=== PATIENT | male | born 1945 | race Caucasian/White ===

== ENCOUNTER 2018-03-08 12:37 | Inpatient (IN) | payer OTHER ==
[2018-03-08] MEDS ORDERED: ASPIRIN 81 MG CHEWABLE TABLETS PO ONE (13:14)
[2018-03-08] MEDS ORDERED: SODIUM CHLORIDE 1,000 ML IV STA (13:14)
[2018-03-08] MEDS ORDERED: dilTIAZem HCL 50 MG/10 ML - 10 ML VIAL IVPUSH ONE ×2 (13:32→14:33)
--- NOTE | 2018-03-08 13:36 | PDOC ---
History of Present Illness - General Chief Complaint: Tachycardia Stated Complaint: PCP SENT Time Seen by Provider: 03/08/18 13:12 History Source: Patient, Spouse Exam Limitations: No Limitations - History of Present Illness Initial Comments: 03/08/18 13:35 Pt. is a 72 y.o. M w/ PMHx. 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 Bardales's office for incidental finding of new onset A.Flutter on EKG and low blood pressure during annual physical. Pt. denies all symptoms currently including dizziness, palpitations, lightheadedness, chest pain, numbness/tingling, shortness of breath, changes in bowel habits, changes in urinary habits or Admission labs, cardiac profile, INR/PT ordered. 03/08/18 15:01 Pt. given 5 mg Diltiazem after 500ml IVF bolus. Pt. HR droppped to 116 but returned to 160s. Pt. started on Cardizem drip. Case discussed with Dr. Johnson and with AUTO BODY REPAIR ESTIMATOR Tong Hollis. Dr. Johnson advised to start Pt. on anticoagulation and use of low dose BB in addition to Cardizem for refractory A.flutter. Timing/Duration: unsure Severity: moderate Associated Symptoms: reports: denies symptoms Aspirin Received prior to arrival: Yes: no aspirin today Beta Trent Contraindications(Core Measure): Yes: Not Prescribed Past History - Travel Traveled outside of the country in the last 30 days: No Close contact w/someone who was outside of country & ill: No - Past Medical History Allergies/Adverse Reactions: Allergies Allergy/AdvReac Type Severity Reaction Status Date / Time atracurium [Atracurium] Allergy Verified 03/08/18 12:46 mivacurium [Mivacurium] AdvReac Severe Verified 03/08/18 12:46 pancuronium [Pancuronium] AdvReac Severe Verified 03/08/18 12:46 rocuronium AdvReac Severe Verified 03/08/18 12:46 succinylcholine AdvReac Severe Verified 03/08/18 12:46 [Succinylcholine] vecuronium [Vecuronium] AdvReac Severe Verified 03/08/18 12:46 Home Medications: Ambulatory Orders Brimonidine Tartrate [Alphagan P 0.1% -] 1 drop OU HS 09/16/13 Folic Acid/Multivit-Min/Lutein [Multi-Vitamin Gummies] 1 each PO DAILY 09/16/13 Levothyroxine [Synthroid -] 50 mcg PO DAILY 09/16/13 Tamsulosin HCl [Flomax -] 0.4 mg PO DAILY 09/16/13 Travoprost 0.004% Ophth Soln [Travatan (Nf)] 1 drop OU AM 09/16/13 Tamsulosin HCl [Flomax -] 0.4 mg PO BID #60 cap.er.24h 09/19/13 levoFLOXacin 250 MG IVPB [Levaquin 250 mg Premixed Ivpb -] 250 mg PO DAILY #3 mg 09/19/13 Anemia: No Asthma: No Cancer: Yes (testicular) Cardiac Disorders: Yes (CABG 2009) CVA: No COPD: No CHF: No Dementia: No Diabetes: Yes (peripheral neuropathy) GI Disorders: Yes (gerd) Disorders: (TESTICULAR CANCER) HTN: Yes Hypercholesterolemia: No Liver Disease: No Seizures: No Thyroid Disease: Yes (hypothyroid) - Surgical History Abdominal Surgery: Yes (APPENDECTOMY) Appendectomy: Yes Cardiac Surgery: Yes (quadrouple BYPASS-2009) Cholecystectomy: No Lung Surgery: No Neurologic Surgery: No Orthopedic Surgery: No - Immunization History Td Vaccination: Yes TDAP Vaccination: Yes Immunization Up to Date: Yes - Suicide/Smoking/Psychosocial Hx Smoking Status: No Smoking History: Never smoked Years of Tobacco Use: 0 Have you smoked in the past 12 months: No Number of Cigarettes Smoked Daily: 0 Cigars Per Day: 0 Hx Alcohol Use: No Drug/Substance Use Hx: No Substance Use Type: None Hx Substance Use Treatment: No Review of Systems - Review of Systems Able to Perform ROS?: Yes Is the patient limited Moldovan proficient: No Constitutional: No: Symptoms Reported HEENTM: No: Symptoms Reported Respiratory: No: Symptoms reported Cardiac (ROS): No: Symptoms Reported ABD/GI: No: Symptoms Reported : No: Symptoms Reported Musculoskeletal: No: Symptoms Reported Integumentary: No: Symptoms Reported Neurological: No: Symptoms reported Endocrine: No: Symptoms Reported Hematologic/Lymphatic: No: Symptoms Reported *Physical Exam - Vital Signs Last Vital Signs Temp Pulse Resp BP Pulse Ox 98.0 F 125 H 16 115/75 99 03/08/18 12:48 03/08/18 12:48 03/08/18 12:48 03/08/18 12:48 03/08/18 12:48 - Physical Exam General Appearance: Yes: Nourished, Appropriately Dressed, Thin. No: Apparent Distress HEENT: positive: Normal ENT Inspection, Normal Voice, Symmetrical, Pharynx Normal, Hearing Grossly Normal. negative: Pharyngeal Erythema, Tonsillar Exudate, Tonsillar Erythema Neck: positive: Trachea midline, Supple. negative: Tender, Carotid bruit Respiratory/Chest: positive: Lungs Clear, Normal Breath Sounds. negative: Chest Tender, Respiratory Distress, Accessory Muscle Use, Rapid RR, Crackles, Rales, Wheezing Cardiovascular: positive: S1, S2, Edema (trace LE edema ), Tachycardia. negative: JVD, Murmur Vascular Pulses: Dorsalis-Pedis (R): 2+, Doralis-Pedis (L): 2+ Gastrointestinal/Abdominal: positive: Normal Bowel Sounds, Soft. negative: Distended, Guarding, Rebound, Tenderness Rectal Exam: positive: deferred Musculoskeletal: positive: Normal Inspection. negative: CVA Tenderness, Vertebral Tenderness Extremity: positive: Normal Capillary Refill, Normal Inspection, Normal Range of Motion, Pelvis Stable, Swelling. negative: Tender, Pedal Edema, Calf Tenderness Integumentary: positive: Normal Color, Dry, Warm. negative: Cold, Clammy, Swelling, Ecchymosis Neurologic: positive: Fully Oriented, Alert, Normal Mood/Affect, Normal Response , Respond to painful stimul, Responsive Moderate Sedation - Procedure Monitoring Vital Signs: Procedure Monitoring Vital Signs Temperature 98.0 F 03/08/18 12:48 Pulse Rate 125 H 03/08/18 12:48 Respiratory Rate 16 03/08/18 12:48 Blood Pressure 115/75 03/08/18 12:48 O2 Sat by Pulse Oximetry (%) 99 03/08/18 12:48 ED Treatment Course - LABORATORY CBC & Chemistry Diagram: 03/08/18 14:05 03/08/18 14:05 - RADIOLOGY Radiology Studies Ordered: Category Date Time Status CHEST PA & LAT [RAD] Stat Radiology 03/08/18 13:14 Ordered *DC/Admit/Observation/Transfer Diagnosis at time of Disposition: Atrial flutter with rapid ventricular response - Discharge Dispostion Decision to Admit order: Yes - Referrals - Patient Instructions - Post Discharge Activity
[2018-03-08] MEDS ORDERED: DILTIAZEM INJECTION 125 MG in DEXTROSE 5%-WATER - 100 ML IVPB SCH (13:45)
[2018-03-08] MEDS ORDERED: dilTIAZem HCL 50 MG/10 ML - 10 ML VIAL ONE (13:46)
[2018-03-08] MEDS ORDERED: ASPIRIN 81 MG CHEWABLE TABLETS ONE (13:47)
[2018-03-08 14:27] LABS: BASO % 0.7 % (0-2.0); EOS % 0.5 % (0-4.5); HEMATOCRIT 37.3 % (35.4-49); HEMOGLOBIN 12.7 GM/dL (11.7-16.9); LYMPH % 17.6 % (8-40); MCH 30.9 pg (25.7-33.7); MCHC 34.2 g/dl (32.0-35.9); MEAN CELL VOLUME 90.5 fl (80-96); MEAN PLT VOLUME 8.1 fl (7.5-11.1); MONO % 5.8 % (3.8-10.2); NEUT % 75.4 % (42.8-82.8); PLATELET COUNT 184 K/MM3 (134-434); RBC 4.12 M/mm3 (4.00-5.60); RDW 15.3 % (11.9-15.9); WHITE BLOOD COUNT 6.8 K/mm3 (4.0-10.0)
--- NOTE | 2018-03-08 14:44 | CON.CARD ---
Consult Consult Specialty:: Cardiology Referred by:: Javan Mendoza MD Reason for Consultation:: Rapid atrial flutter - History of Present Illness Chief Complaint: Rapid atrial flutter History of Present Illness: 72-year-old male with known history of coronary artery disease status post coronary artery bypass grafting August 12, 2009 (utilizing the following conduits: Left internal mammary artery into the LAD-D 1 and left anterior descending coronary artery, saphenous vein graft to the LCX-OM 1 branch, saphenous vein graft to the posterior descending coronary artery) status post type II myocardial infarction/demand ischemic injury in the context of sepsis syndrome with negative pharmacologic (Dipyridamole) myocardial perfusion imaging study for myocardial ischemia May 20, 2015 angina pectoris, diastolic left ventricular dysfunction with class 0 [place] Heart Association classification left ventricular failure, hypercholesterolemia currently on no statin therapy (patient refusal to therapy administration), deep vein thrombosis with history of pulmonary thromboembolism, myasthenia gravis, hypothyroidism, 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 Patient referred to the ED from Dr. Mendoza's office for new onset A.Flutter on EKG and low blood pressure during annual physical. Pt. denies all symptoms currently including dizziness, palpitations, lightheadedness, chest pain, numbness/tingling, shortness of breath worse than baseline, orthopnea, PND, LE edema or decrease in exercise capacity. Given IV Cardizem and started on cardizem gtt for rate-control. 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: Other (Myasthenia Gravis ) Cardio/Vascular: Yes: CAD (s/p CABG (2009)), HTN, Hyperlipdemia Pulmonary: Yes: COPD Renal/: Yes: BPH, Renal Calculi, Other (Testicular Cancer (1975)) Infectious Disease: Yes: C-Diff, Other (Spine (L3-4) Osteomyelitis (2012)) Rheumatology: Yes: Other (Reynaud's Phenomenon) Endocrine: Yes: Hypothyroidism - Past Surgical History Past Surgical History: Yes: Appendectomy, CABG - Alcohol/Substance Use Hx Alcohol Use: No History of Substance Use: reports: None - Smoking History Smoking history: Never smoked Have you smoked in the past 12 months: No Aproximately how many cigarettes per day: 0 Home Medications - Allergies Allergies/Adverse Reactions: Allergies Allergy/AdvReac Type Severity Reaction Status Date / Time atracurium [Atracurium] Allergy Verified 03/08/18 12:46 mivacurium [Mivacurium] AdvReac Severe Verified 03/08/18 12:46 pancuronium [Pancuronium] AdvReac Severe Verified 03/08/18 12:46 rocuronium AdvReac Severe Verified 03/08/18 12:46 succinylcholine AdvReac Severe Verified 03/08/18 12:46 [Succinylcholine] vecuronium [Vecuronium] AdvReac Severe Verified 03/08/18 12:46 - Home Medications Home Medications: Ambulatory Orders Brimonidine Tartrate [Alphagan P 0.1% -] 1 drop OU HS 09/16/13 Folic Acid/Multivit-Min/Lutein [Multi-Vitamin Gummies] 1 each PO DAILY 09/16/13 Levothyroxine [Synthroid -] 50 mcg PO DAILY 09/16/13 Travoprost 0.004% Ophth Soln [Travatan (Nf)] 1 drop OU AM 09/16/13 Tamsulosin HCl [Flomax -] 0.4 mg PO BID #60 cap.er.24h 09/19/13 Vital Signs: Vital Signs Temperature 98.0 F 03/08/18 12:48 Pulse Rate 163 H 03/08/18 14:25 Respiratory Rate 26 H 03/08/18 14:25 Blood Pressure 116/76 03/08/18 14:25 O2 Sat by Pulse Oximetry (%) 100 03/08/18 14:25 Constitutional: Yes: No Distress, Calm, Thin Neck: Yes: Supple Respiratory: Yes: Regular, CTA Bilaterally Gastrointestinal: Yes: Normal Bowel Sounds, Soft Cardiovascular: Yes: Tachycardia JVD: No Carotid Bruit: No Heart Sounds: Yes: S1, S2 Edema: No - Other Data Labs, Other Data: CBC, BMP 03/08/18 14:05 Troponin, BNP 03/08/18 14:05 B-Natriuretic Peptide Cancelled Troponin, BNP 03/08/18 14:05 B-Natriuretic Peptide Cancelled Aflutter @ 123 Imaging - Results Chest X-ray: Image Reviewed (NAD) Problem List - Problems (1) S/P CABG (coronary artery bypass graft) Code(s): Z95.1 - PRESENCE OF AORTOCORONARY BYPASS GRAFT (2) Atrial flutter with rapid ventricular response Code(s): I48.92 - UNSPECIFIED ATRIAL FLUTTER (3) Hypothyroid Code(s): E03.9 - HYPOTHYROIDISM, UNSPECIFIED Qualifiers: Hypothyroidism type: unspecified Qualified Code(s): E03.9 - Hypothyroidism , unspecified (4) CKD (chronic kidney disease) Code(s): N18.9 - CHRONIC KIDNEY DISEASE, UNSPECIFIED Qualifiers: Chronic kidney disease stage: stage 2 (mild) Qualified Code(s): N18.2 - Chronic kidney disease, stage 2 (mild) (5) Diastolic dysfunction Code(s): I51.9 - HEART DISEASE, UNSPECIFIED Assessment/Plan Echocardiography performed May 28, 2015 revealed overall preserved left ventricular systolic function, mitral annular calcification, aortic valve leaflet sclerosis, aortic root sclerosis, mild right atrial dilatation, mild mitral and tricuspid valve regurgitation aneurysmal intra-atrial septum with no evidence of intra-cardiac shunting. Pharmacologic (Dipyridamole) myocardial perfusion imaging study performed May 20, 2015 revealed small size infero-basal wall defect compatible with diaphragmatic attenuation with normal left ventricular contraction pattern on LV gated analysis with calculated left ventricular ejection fraction of 73%. Carotid Doppler study performed June 19, 2014 revealed mild to moderate degree of atherosclerotic disease bilaterally with no evidence of hemodynamically significant stenosis. ASSESSMENT: 1. Paroxysmal atrial flutter with RVR [id number] 2. Coronary artery disease status post coronary artery bypass grafting status post type II myocardial infarction/demand ischemic injury in context of sepsis syndrome with negative pharmacologic (Dipyridamole) myocardial perfusion imaging study angina pectoris. 3. Diastolic left ventricular dysfunction with class 0 [place] Heart Association classification left ventricular failure. 4. Hypercholesterolemia currently on no statin therapy, related to patient refusal to therapy administration. 5. History of deep vein thrombosis with pulmonary thromboembolism. 6. History of myasthenia gravis. 7. History of hypothyroidism. 8. 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 9. History of chronic kidney disease. 10. Degenerative joint disease. 11. Chronic insomnia. PLAN: 1. Maintain on cardizem gtt and start Lopressor 25 bid for rate-control with uptitration as hemodynamics tolerate, agree with start Eliquis 5 bid given elevated risk score, d/c ECASA. 2. F/u echocardiogram to assess ventricular and valve fxn, atrial sizes, renal sonogram 3. Consider DCCV if atrial flutter persists, either with MARIA ISABEL-guidance or after at least 3 weeks of anticoagulation 4. Thank you for consultative opportunity
[2018-03-08 14:48] LABS: ALBUMIN 3.9 g/dl (3.4-5.0); ALK PHOS 43 U/L (45-117); ANION GAP 7 MMOL/L (8-16); BILIRUBIN,TOTAL 0.7 mg/dL (0.2-1); BLOOD UREA NITROGEN 31 mg/dL (7-18); CALCIUM 8.8 mg/dL (8.5-10.1); CHLORIDE 108 mmol/L (98-107); CO2 27 mmol/L (21-32); CREATININE 1.4 mg/dL (0.55-1.3); GLUCOSE,RANDOM 101 mg/dL (74-106); MAGNESIUM 2.4 mg/dL (1.8-2.4); N-TERMINAL BNP 1139.2 pg/ml (5-125); POTASSIUM 4.2 mmol/L (3.5-5.1); SGOT/AST 18 U/L (15-37); SGPT/ALT 19 U/L (13-61); SODIUM 142 mmol/L (136-145); TOT PROT 6.3 g/dl (6.4-8.2)
[2018-03-08] MEDS ORDERED: DIGOXIN 0.5 MG/2 ML AMPUL IVPUSH ONE (14:58)
[2018-03-08 15:01] LABS: INR 1.05 (0.83-1.09); PROTHROMBIN TIME (PATIENT) 12.4 SEC (9.7-13.0)
--- NOTE | 2018-03-08 15:04 | PDOC ---
Attending Attestation - HPI HPI: 03/08/18 15:05 The patient is a 72 year old male, with a significant PMH of CAD s/p CABG, hypothyroidism, myasthenia (eyes), s/p appendectomy, who presents to the emergency department sent in by PCP for evaluation of atrial flutter. The patient states he feels well and does not feel his heart racing. Denies any sick contacts or recent travel. Denies any cough or hemoptysis. The patient denies chest pain, shortness of breath, headache and dizziness. Denies fever, chills, nausea, vomit, diarrhea and constipation. Denies dysuria, frequency, urgency and hematuria. Allergies: atracurium, mivacurium, pancuronium, rocuronium (More). Documentation prepared by Fadi Zavala, acting as medical administrative technician for Jordan Byrne MD. - Physicial Exam PE: 03/08/18 15:06 Vitals: Triage Vital signs reviewed General Appearance: no acute distress, well nourished well developed, Neck: Supple;No Nuchal rigidity Chest Wall: Nontender Cardiac: (+) Irregular rhythm. (+) Tachycardia. no murmurs, no rubs, no gallops, Lungs: Clear to auscultation bilateral, good air movement bilaterally, Abdomen: Soft, nondistended, normal bowel sounds, nontender to palpation Rectal: Exam deferred Extremities: Full range of motion to all extremities, no cyanosis, clubbing, or edema Skin: Warm and dry, no rashes or lesions, no petechiae Psych: normal mood, normal affect <Fadi Zavala - Last Filed: 03/08/18 15:05> - Resident Resident Name: Arcadio Diallo - ED Attending Attestation I have performed the following: I have examined & evaluated the patient, The case was reviewed & discussed with the resident, I agree w/resident's findings & plan, Exceptions are as noted - Critical Care Time Total Critical Care Time: 45 Critical Care Statement: The care of this patient involved high complexity decision making to prevent further life threatening deterioration of the patient 's condition and/or to evaluate & treat vital organ system(s) failure or risk of failure. - Medical Decision Making 03/08/18 16:09 The patient is a 72 year old male, with a significant PMH of CAD s/p CABG, hypothyroidism, myasthenia (eyes), s/p appendectomy, who presents to the emergency department sent in by PCP for evaluation of atrial flutter. The patient states he feels well and does not feel his heart racing. Denies any sick contacts or recent travel. Denies any cough or hemoptysis. 72 years old with no known history of a flutter but comments that often over the past year when she checks patient's vital signs at home she has observed him with an elevated heart rate however when he follows up his doctor' s office there is no known history of a flutter Here in the emergency department patient said in for a flutter with RVR at a rate of 123 IV fluids were ordered 5 mg of diltiazem ordered which transiently dipped the patient's blood pressure into the 90s systolic but quickly resolved IV heparin ordered for anticoagulation Patient was placed on IV diltiazem drip status post 15 minutes on diltiazem drip patient now rate controlled but still in a flutter Cardiology has been consult did patient will be admitted to medicine under telemetry for further evaluation. <Jordan Byrne - Last Filed: 03/08/18 16:10> Heart Score/ECG Review - ECG Impressions Comment:: 03/08/18 15:02 EKG performed at 1307 demonstrates atrial flutter with 21 conduction block right bundle-branch block. Interpreted by me. <Jordan Byrne - Last Filed: 03/08/18 16:10>
--- NOTE | 2018-03-08 15:15 | HP ---
Admitting History and Physical - Primary Care Physician PCP: Javan Mendoza - Admission Chief Complaint: rapid heart rate History of Present Illness: Pt. is a 72 y.o. M w/ PMHx. 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 Mendoza's office for incidental finding of new onset A.Flutter on EKG and low blood pressure during annual physical. 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: Other (Myasthenia Gravis ) Cardiovascular: Yes: CAD (s/p CABG (2009)), HTN, Hyperlipdemia Pulmonary: Yes: COPD Renal/: Yes: BPH, Renal Calculi, Other (Testicular Cancer (1975)) Heme/Onc: Yes: Cancer (as per system) Infectious Disease: Yes: C-Diff, Other (Spine (L3-4) Osteomyelitis (2012)) Rheumatology: Yes: Other (Reynaud's Phenomenon) Endocrine: Yes: Hypothyroidism - Past Surgical History Past Surgical History: Yes: Appendectomy, CABG - Smoking History Smoking history: Never smoked Have you smoked in the past 12 months: No Aproximately how many cigarettes per day: 0 - Alcohol/Substance Use Hx Alcohol Use: No History of Substance Use: reports: None Home Medications - Allergies Allergies/Adverse Reactions: Allergies Allergy/AdvReac Type Severity Reaction Status Date / Time atracurium [Atracurium] Allergy Verified 03/08/18 12:46 mivacurium [Mivacurium] AdvReac Severe Verified 03/08/18 12:46 pancuronium [Pancuronium] AdvReac Severe Verified 03/08/18 12:46 rocuronium AdvReac Severe Verified 03/08/18 12:46 succinylcholine AdvReac Severe Verified 03/08/18 12:46 [Succinylcholine] vecuronium [Vecuronium] AdvReac Severe Verified 03/08/18 12:46 - Home Medications Home Medications: Ambulatory Orders Brimonidine Tartrate [Alphagan P 0.1% -] 1 drop OU HS 09/16/13 Folic Acid/Multivit-Min/Lutein [Multi-Vitamin Gummies] 1 each PO DAILY 09/16/13 Levothyroxine [Synthroid -] 50 mcg PO DAILY 09/16/13 Travoprost 0.004% Ophth Soln [Travatan (Nf)] 1 drop OU AM 09/16/13 Tamsulosin HCl [Flomax -] 0.4 mg PO BID #60 cap.er.24h 09/19/13 Review of Systems - Review of Systems HENT: reports: No Symptoms Neck: reports: No Symptoms Cardiovascular: reports: No Symptoms Physical Examination Vital Signs: Vital Signs Temperature 98.0 F 03/08/18 12:48 Pulse Rate 163 H 03/08/18 14:25 Respiratory Rate 26 H 03/08/18 14:25 Blood Pressure 116/76 03/08/18 14:25 O2 Sat by Pulse Oximetry (%) 100 03/08/18 14:25 Constitutional: Yes: Calm Cardiovascular: Yes: Pulse Irregular, S1, S2 Respiratory: Yes: CTA Bilaterally Gastrointestinal: Yes: Normal Bowel Sounds, Soft Edema: No Neurological: Yes: Alert, Oriented Labs: CBC, BMP 03/08/18 14:05 03/08/18 14:05 Problem List - Problems (1) Atrial flutter with rapid ventricular response Assessment/Plan: [facility] ej Code(s): I48.92 - UNSPECIFIED ATRIAL FLUTTER (2) Hypothyroid Assessment/Plan: tsh synthroid Code(s): E03.9 - HYPOTHYROIDISM, UNSPECIFIED (3) Glaucoma Assessment/Plan: eye drops Code(s): H40.9 - UNSPECIFIED GLAUCOMA (4) BPH (benign prostatic hyperplasia) Assessment/Plan: flomax Code(s): N40.0 - BENIGN PROSTATIC HYPERPLASIA WITHOUT LOWER URINRY TRACT SYMP
[2018-03-08] MEDS ORDERED: ACETAMINOPHEN 325 MG TABLET (FP) PO PRN (15:26)
[2018-03-08] MEDS: APIXABAN 5 MG TABLET PO SCH ×2 (17:31→21:37)
[2018-03-08] MEDS: TAMSULOSIN HCL 0.4 MG CAP PO SCH (17:32)
[2018-03-08] MEDS ORDERED: METOPROLOL TARTRATE 25 MG TABLET (FP) ONE ×3 (20:27→23:46)
[2018-03-08] MEDS: METOPROLOL TARTRATE 25 MG TABLET (FP) PO SCH ×2 (20:29→21:37)
[2018-03-08] MEDS ORDERED: APIXABAN 5 MG TABLET PO ONE (21:34)
[2018-03-08] MEDS: BRIMONIDINE TARTRATE 0.1% OPHTHALMIC 5 ML BOTTLE OU SCH (21:37)
[2018-03-08] MEDS ORDERED: METOPROLOL TARTRATE 25 MG TABLET (FP) PO ONE (23:43)
[2018-03-09 03:31] VITALS: BMI 23.1
[2018-03-09] MEDS: LEVOTHYROXINE NA 50 MCG TABLET (FP) PO SCH (06:14)
[2018-03-09] MEDS ORDERED: LATANOPROST 0.005% OPHTH SOLN 2.5ML BOTTLE OU SCH ×2 (07:00→22:00)
--- NOTE | 2018-03-09 08:01 | PN ---
Progress Note, Physician - Current Medication List Current Medications: Active Medications Acetaminophen (Tylenol -) 650 mg PO Q4H PRN PRN Reason: PAIN OR FEVER Apixaban (Eliquis -) 5 mg PO BID [facility] Last Admin: 03/08/18 21:37 Dose: Not Given Brimonidine Tartrate (Alphagan P 0.1% -) 1 drop OU HS [facility] Last Admin: 03/08/18 21:37 Dose: Not Given Diltiazem HCl 125 mg/ Dextrose 125 mls @ 5 mls/hr IVPB TITR PANCHO; Protocol Last Admin: 03/08/18 14:25 Dose: 5 mg/hr, 5 mls/hr Latanoprost (Xalatan 0.005% Eye Drops -) 1 drop OU HS [facility] Levothyroxine Sodium (Synthroid -) 50 mcg PO DAILY@0700 [facility] Last Admin: 03/09/18 06:14 Dose: 50 mcg Metoprolol Tartrate (Lopressor -) 25 mg PO BID [facility] Last Admin: 03/08/18 21:37 Dose: Not Given Tamsulosin HCl (Flomax -) 0.4 mg PO DAILY@0830 [facility] Last Admin: 03/08/18 17:32 Dose: 0.4 mg - Objective Vital Signs: Vital Signs Temperature 98 F 03/09/18 06:00 Pulse Rate 78 03/09/18 06:00 Respiratory Rate 20 03/09/18 06:00 Blood Pressure 118/66 03/09/18 06:00 O2 Sat by Pulse Oximetry (%) 100 03/09/18 02:02 Cardiovascular: Yes: Pulse Irregular, S1, S2 Respiratory: Yes: Regular, CTA Bilaterally Gastrointestinal: Yes: Normal Bowel Sounds, Soft Edema: No Labs: CBC, BMP 03/08/18 14:05 03/08/18 14:05 INR, PTT INR 1.05 (0.83-1.09) 03/08/18 14:05 Problem List - Problems (1) Atrial flutter with rapid ventricular response Assessment/Plan: telemetry [facility] echo cardiology eval--pt want to change crdiologist--used to see alana but stopped following as outpatient and prefers a different group eliquis Code(s): I48.92 - UNSPECIFIED ATRIAL FLUTTER (2) CKD (chronic kidney disease) Assessment/Plan: -Foloow trends -Renal consult -Probably due to bph -Flomax Code(s): N18.9 - CHRONIC KIDNEY DISEASE, UNSPECIFIED Qualifiers: Chronic kidney disease stage: stage 2 (mild) Qualified Code(s): N18.2 - Chronic kidney disease, stage 2 (mild) (3) Hypothyroid Assessment/Plan: tsh synthroid Code(s): E03.9 - HYPOTHYROIDISM, UNSPECIFIED Qualifiers: Hypothyroidism type: unspecified Qualified Code(s): E03.9 - Hypothyroidism , unspecified (4) S/P CABG (coronary artery bypass graft) Code(s): Z95.1 - PRESENCE OF AORTOCORONARY BYPASS GRAFT
[2018-03-09 10:00] LABS: ALBUMIN 4.4 g/dl (3.4-5.0); ALK PHOS 49 U/L (45-117); ANION GAP 9 MMOL/L (8-16); BILIRUBIN,TOTAL 1.2 mg/dL (0.2-1); BLOOD UREA NITROGEN 24 mg/dL (7-18); CHLORIDE 108 mmol/L (98-107); CO2 24 mmol/L (21-32); CREATININE 1.3 mg/dL (0.55-1.3); GLUCOSE,RANDOM 120 mg/dL (74-106); POTASSIUM 4.1 mmol/L (3.5-5.1); SGOT/AST 22 U/L (15-37); SGPT/ALT 20 U/L (13-61); SODIUM 141 mmol/L (136-145); TOT PROT 6.8 g/dl (6.4-8.2)
--- NOTE | 2018-03-09 10:57 | PN ---
Progress Note, Physician History of Present Illness: Rate-controlled aflutter, asymptomatic on Cardizem gtt. Confused and pulled off monitor, called to pick him up. - Current Medication List Current Medications: Active Medications Acetaminophen (Tylenol -) 650 mg PO Q4H PRN PRN Reason: PAIN OR FEVER Apixaban (Eliquis -) 5 mg PO BID [facility] Last Admin: 03/08/18 21:37 Dose: Not Given Brimonidine Tartrate (Alphagan P 0.1% -) 1 drop OU HS [facility] Last Admin: 03/08/18 21:37 Dose: Not Given Diltiazem HCl 125 mg/ Dextrose 125 mls @ 5 mls/hr IVPB TITR [facility]; Protocol Last Admin: 03/08/18 14:25 Dose: 5 mg/hr, 5 mls/hr Latanoprost (Xalatan 0.005% Eye Drops -) 1 drop OU HS [facility] Levothyroxine Sodium (Synthroid -) 50 mcg PO DAILY@0700 [facility] Last Admin: 03/09/18 06:14 Dose: 50 mcg Metoprolol Tartrate (Lopressor -) 25 mg PO BID [facility] Last Admin: 03/08/18 21:37 Dose: Not Given Tamsulosin HCl (Flomax -) 0.4 mg PO DAILY@0830 [facility] Last Admin: 03/08/18 17:32 Dose: 0.4 mg - Objective Vital Signs: Vital Signs Temperature 98 F 03/09/18 06:00 Pulse Rate 78 03/09/18 06:00 Respiratory Rate 20 03/09/18 06:00 Blood Pressure 118/66 03/09/18 06:00 O2 Sat by Pulse Oximetry (%) 100 03/09/18 02:02 Constitutional: Yes: No Distress, Calm Neck: Yes: Supple Cardiovascular: Yes: Regular Rate and Rhythm Respiratory: Yes: Regular, CTA Bilaterally Gastrointestinal: Yes: Normal Bowel Sounds, Soft Edema: No Labs: CBC, BMP 03/08/18 14:05 03/09/18 09:04 INR, PTT INR 1.05 (0.83-1.09) 03/08/18 14:05 - ....Imaging Ultrasound: Report Reviewed (No hydronephrosis) EKG: Report Reviewed (Tele: Rate-controlled aflutter) Problem List - Problems (1) S/P CABG (coronary artery bypass graft) Code(s): Z95.1 - PRESENCE OF AORTOCORONARY BYPASS GRAFT (2) Atrial flutter with rapid ventricular response Code(s): I48.92 - UNSPECIFIED ATRIAL FLUTTER (3) Hypothyroid Code(s): E03.9 - HYPOTHYROIDISM, UNSPECIFIED Qualifiers: Hypothyroidism type: unspecified Qualified Code(s): E03.9 - Hypothyroidism , unspecified (4) CKD (chronic kidney disease) Code(s): N18.9 - CHRONIC KIDNEY DISEASE, UNSPECIFIED Qualifiers: Chronic kidney disease stage: stage 2 (mild) Qualified Code(s): N18.2 - Chronic kidney disease, stage 2 (mild) (5) Diastolic dysfunction Code(s): I51.9 - HEART DISEASE, UNSPECIFIED Assessment/Plan Echocardiography performed May 28, 2015 revealed overall preserved left ventricular systolic function, mitral annular calcification, aortic valve leaflet sclerosis, aortic root sclerosis, mild right atrial dilatation, mild mitral and tricuspid valve regurgitation aneurysmal intra-atrial septum with no evidence of intra-cardiac shunting. Pharmacologic (Dipyridamole) myocardial perfusion imaging study performed May 20, 2015 revealed small size infero-basal wall defect compatible with diaphragmatic attenuation with normal left ventricular contraction pattern on LV gated analysis with calculated left ventricular ejection fraction of 73%. Carotid Doppler study performed June 19, 2014 revealed mild to moderate degree of atherosclerotic disease bilaterally with no evidence of hemodynamically significant stenosis. ASSESSMENT: 1. Paroxysmal atrial flutter with RVR [id number] 2. Coronary artery disease status post coronary artery bypass grafting status post type II myocardial infarction/demand ischemic injury in context of sepsis syndrome with negative pharmacologic (Dipyridamole) myocardial perfusion imaging study angina pectoris. 3. Diastolic left ventricular dysfunction with class 0 [place] [employer] classification left ventricular failure. 4. Hypercholesterolemia currently on no statin therapy, related to patient refusal to therapy administration. 5. History of deep vein thrombosis with pulmonary thromboembolism. 6. History of myasthenia gravis. 7. History of hypothyroidism. 8. 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 9. History of chronic kidney disease. 10. Degenerative joint disease. 11. Chronic insomnia. 12. Dementia PLAN: 1. Wean off cardizem gtt and increase Lopressor 50 bid for rate-control with uptitration as hemodynamics tolerate, agree with Eliquis 5 bid given elevated risk score 2. F/u echocardiogram to assess ventricular and valve fxn, atrial sizes 3. Consider DCCV if atrial flutter persists, either with MARIA ISABEL-guidance or after at least 3 weeks of anticoagulation 4. Patient defers health care decisions to Marzena who prefers to continue f/ u with Dr. Calvert as outpatient
[2018-03-09] MEDS: METOPROLOL TARTRATE 25 MG TABLET (FP) PO SCH (11:20)
[2018-03-09] MEDS: APIXABAN 5 MG TABLET PO SCH ×2 (11:20→21:58)
[2018-03-09] MEDS: TAMSULOSIN HCL 0.4 MG CAP PO SCH (11:20)
--- NOTE | 2018-03-09 12:04 | EKG ---
Test Reason : Blood Pressure : / mmHG Vent. Rate : 123 BPM Atrial Rate : 246 BPM P-R Int : 000 ms QRS Dur : 158 ms QT Int : 426 ms P-R-T Axes : 000 096 267 degrees QTc Int : 609 ms ATRIAL FLUTTER WITH 2:1 A-V CONDUCTION RIGHT BUNDLE BRANCH BLOCK INFERIOR INFARCT , AGE UNDETERMINED T WAVE ABNORMALITY, CONSIDER LATERAL ISCHEMIA ABNORMAL ECG WHEN COMPARED WITH ECG OF 16-SEP-2013 12:11, ATRIAL FLUTTER HAS REPLACED SINUS RHYTHM VENT. RATE HAS INCREASED BY 43 BPM RIGHT BUNDLE BRANCH BLOCK IS NOW PRESENT INFERIOR INFARCT IS NOW PRESENT Confirmed by BUDDY MAZA, WENCESLAO ([id number]) on 03/09/2018 12:03:43 PM Referred By: Confirmed By:WENCESLAO GOODWIN MD
[2018-03-09] MEDS ORDERED: METOPROLOL TARTRATE 25 MG TABLET (FP) PO ONE (13:14)
[2018-03-09] MEDS ORDERED: DILTIAZEM INJECTION 125 MG in DEXTROSE 5%-WATER - 100 ML IVPB SCH (15:08)
--- NOTE | 2018-03-09 15:30 | ECHO ---
Name: J LUIS COREA Exam:Adult Echocardiogram Study Date: 03/09/2018 01:30 PM Age: 72 yrs Reason For Study: Arrhythmia Height: 72 in Weight: 168 lb BSA: 2.0 m2 MMode/2D Measurements & Calculations IVSd: 0.87 cm Ao root diam: 2.7 cm LVIDd: 4.6 cm LA dimension: 3.4 cm LVIDs: 3.0 cm LVPWd: 0.86 cm EDV(Teich): 98.5 ml ESV(Teich): 34.1 ml Doppler Measurements & Calculations MV E max cristóbal: 68.0 cm/sec MR max cristóbal: 374.2 cm/sec MV A max cristóbal: 45.5 cm/sec MR max P.0 mmHg MV E/A: 1.5 MV dec time: 0.13 sec TR max cristóbal: 162.3 cm/sec Med Peak E' Cristóbal: 11.5 cm/sec TR max P.6 mmHg Med E/e': 5.9 Lat Peak E' Cristóbal: 15.7 cm/sec Lat E/e': 4.3 Left Ventricle Ejection Fraction = 50%. Left ventricular systolic function is low normal. Septal motion is consisten t with conduction abnormality. Right Ventricle The right ventricle is grossly normal size. The right ventricular systolic function is grossly normal . Atria The left atrium is mildly dilated. Mitral Valve The mitral valve is normal in structure and function. There is no mitral valve stenosis. There is mil d mitral regurgitation. Tricuspid Valve The tricuspid valve is normal in structure and function. There is mild tricuspid regurgitation. Right ventricular systolic pressure is normal. Aortic Valve There is mild aortic valve thickening. No hemodynamically significant valvular aortic stenosis. No ao rtic regurgitation is present. Pulmonic Valve The pulmonic valve is not well seen, but is grossly normal. There is no pulmonic valvular stenosis. T here is no pulmonic valvular regurgitation. Great Vessels The aortic root is normal size. Pericardium/Pleura There is no pericardial effusion. Interpretation Summary Ejection Fraction = 50%. Left ventricular systolic function is low normal. The left atrium is mildly dilated. There is mild mitral regurgitation. There is mild tricuspid regurgitation. Right ventricular systolic pressure is normal. There is no pericardial effusion. MD Topete *Macie 03/09/2018 03:29 PM
--- NOTE | 2018-03-09 18:26 | CONSULT ---
Consult - text type - Consultation Consultation Note: Renal Consult for REMA vs CKD This is a 72 year old gentleman with hx of CAD, BPH, DVT/PE, Myasthaenia gravis , testicular cancer who presented with rapid HR and found to have aflutter with Cr of 1.4. Pt denies any history of CKD. No hx of stones or urinary tract infections. No NSAID use. No recent contrast exposure. Making urine at this time w/o difficulty. Denies any N/V/D, abd pain, fever, chills. No SOB or CP. On dilitizem gtt for aflutter. PMhx: as above Allergies: NKDA Family Hx: NC Social Hx: No T/A/D ROS: as per HPI, all other pertinent ros negative Home Medications Medication Instructions Recorded Brimonidine Tartrate [Alphagan P 1 drop OU HS 09/16/13 0.1% -] Folic Acid/Multivit-Min/Lutein 1 each PO DAILY 09/16/13 [Multi-Vitamin Gummies] Levothyroxine [Synthroid -] 50 mcg PO DAILY 09/16/13 Travoprost 0.004% Ophth Soln 1 drop OU AM 09/16/13 [Travatan (Nf)] Tamsulosin HCl [Flomax -] 0.4 mg PO BID #60 cap.er.24h 09/19/13 Vital Signs Temperature 98.5 F 03/09/18 15:30 Pulse Rate 61 03/09/18 15:30 Respiratory Rate 18 03/09/18 15:30 Blood Pressure 103/54 L 03/09/18 15:30 O2 Sat by Pulse Oximetry (%) 100 03/09/18 02:02 Intake & Output 03/06/18 03/07/18 03/08/18 03/09/18 23:59 23:59 23:59 23:59 Intake Total 960 Balance 960 Weight 76.204 kg 77.201 kg NAD awake and alert neck supple no JVD irregular No M/R CTA no LE edema CBC, BMP 03/08/18 14:05 03/09/18 09:04 Current Medications Acetaminophen (Tylenol -) 650 mg PO Q4H PRN PRN Reason: PAIN OR FEVER Apixaban (Eliquis -) 5 mg PO BID [facility] Last Admin: 03/09/18 11:20 Dose: 5 mg Brimonidine Tartrate (Alphagan P 0.1% -) 1 drop OU HS [facility] Last Admin: 03/08/18 21:37 Dose: Not Given Diltiazem HCl 125 mg/ Dextrose 125 mls @ 2.5 mls/hr IVPB TITR [facility]; Protocol Last Admin: 03/09/18 15:17 Dose: Not Given Latanoprost (Xalatan 0.005% Eye Drops -) 1 drop OU HS [facility] Levothyroxine Sodium (Synthroid -) 50 mcg PO DAILY@0700 [facility] Last Admin: 03/09/18 06:14 Dose: 50 mcg Metoprolol Tartrate (Lopressor -) 50 mg PO BID [facility] Tamsulosin HCl (Flomax -) 0.4 mg PO DAILY@0830 [facility] Last Admin: 03/09/18 11:20 Dose: 0.4 mg A/P 72 year old gentleman with hx of CAD, BPH, DVT/PE, Myasthaenia gravis, testicular cancer who presented with rapid HR and found to have aflutter with Cr of 1.4. #REMA vs CKD likely due to renal hypoprofusion in setting of Aflutter vs. obstruction in urine flow #New Aflutter #BPH on Flomax #Hypothyroidism Renal function with mild improvement today Check UA, UPCR Check Kidney and bladder US continue to trend renal function with improved rate control no acute indication for [employer]OR [employer] PROFIT avoid nephrotoxins and IV contrast continue flomax Cardiology follow up Juan Alberto Blanco DO
[2018-03-09] MEDS ORDERED: PT OWN MED DRAWER 7, Y5N ONE (21:50)
[2018-03-09] MEDS: METOPROLOL TARTRATE 50 MG TABLET (FP) PO SCH (21:58)
[2018-03-09] MEDS: BRIMONIDINE TARTRATE 0.1% OPHTHALMIC 5 ML BOTTLE OU SCH (23:00)
[2018-03-10] MEDS ORDERED: PT OWN MED DRAWER 7, Y5N ONE (00:57)
[2018-03-10] MEDS: LEVOTHYROXINE NA 50 MCG TABLET (FP) PO SCH (06:36)
[2018-03-10 07:53] LABS: BASO % 0.6 % (0-2.0); EOS % 3.3 % (0-4.5); HEMOGLOBIN 11.9 GM/dL (11.7-16.9); LYMPH % 38.9 % (8-40); MCH 29.3 pg (25.7-33.7); MCHC 32.2 g/dl (32.0-35.9); MEAN CELL VOLUME 91.1 fl (80-96); MEAN PLT VOLUME 7.7 fl (7.5-11.1); MONO % 8.9 % (3.8-10.2); NEUT % 48.3 % (42.8-82.8); PLATELET COUNT 172 K/MM3 (134-434); RBC 4.06 M/mm3 (4.00-5.60); RDW 14.9 % (11.9-15.9); WHITE BLOOD COUNT 4.7 K/mm3 (4.0-10.0)
[2018-03-10 08:35] LABS: ALBUMIN 3.2 g/dl (3.4-5.0); ALK PHOS 34 U/L (45-117); ANION GAP 8 MMOL/L (8-16); BILIRUBIN,TOTAL 0.9 mg/dL (0.2-1); BLOOD UREA NITROGEN 20 mg/dL (7-18); CALCIUM 8.5 mg/dL (8.5-10.1); CHLORIDE 109 mmol/L (98-107); CO2 24 mmol/L (21-32); CREATININE 1.1 mg/dL (0.55-1.3); GLUCOSE,RANDOM 95 mg/dL (74-106); MAGNESIUM 2.3 mg/dL (1.8-2.4); PHOSPHOROUS 3.3 mg/dL (2.5-4.9); POTASSIUM 3.8 mmol/L (3.5-5.1); SGOT/AST 21 U/L (15-37); SGPT/ALT 19 U/L (13-61); SODIUM 141 mmol/L (136-145); TOT PROT 5.2 g/dl (6.4-8.2)
--- NOTE | 2018-03-10 09:21 | PN ---
Progress Note, Physician History of Present Illness: Rate-controlled aflutter weaned off Cardizem gtt. Pleasantly confused, asymptomatic. - Current Medication List Current Medications: Active Medications Acetaminophen (Tylenol -) 650 mg PO Q4H PRN PRN Reason: PAIN OR FEVER Apixaban (Eliquis -) 5 mg PO BID [facility] Last Admin: 03/09/18 21:58 Dose: 5 mg Brimonidine Tartrate (Alphagan P 0.1% -) 1 drop OU HS [facility] Last Admin: 03/09/18 23:00 Dose: 1 drop Diltiazem HCl 125 mg/ Dextrose 125 mls @ 2.5 mls/hr IVPB TITR [facility]; Protocol Last Admin: 03/09/18 15:17 Dose: Not Given Latanoprost (Xalatan 0.005% Eye Drops -) 1 drop OU HS [facility] Last Admin: 03/09/18 21:59 Dose: 1 drop Levothyroxine Sodium (Synthroid -) 50 mcg PO DAILY@0700 [facility] Last Admin: 03/10/18 06:36 Dose: 50 mcg Metoprolol Tartrate (Lopressor -) 50 mg PO BID [facility] Last Admin: 03/09/18 21:58 Dose: 50 mg Tamsulosin HCl (Flomax -) 0.4 mg PO DAILY@0830 [facility] Last Admin: 03/09/18 11:20 Dose: 0.4 mg - Objective Vital Signs: Vital Signs Temperature 97.8 F 03/10/18 06:00 Pulse Rate 68 03/10/18 06:00 Respiratory Rate 18 03/10/18 06:00 Blood Pressure 107/63 03/10/18 06:00 O2 Sat by Pulse Oximetry (%) 100 03/09/18 21:00 Constitutional: Yes: No Distress, Calm, Thin HENT: Yes: Atraumatic Neck: Yes: Supple Cardiovascular: Yes: Regular Rate and Rhythm Respiratory: Yes: Regular, CTA Bilaterally Gastrointestinal: Yes: Normal Bowel Sounds, Soft Edema: No Labs: CBC, BMP 03/10/18 06:30 03/10/18 06:30 INR, PTT INR 1.05 (0.83-1.09) 03/08/18 14:05 - ....Imaging EKG: Report Reviewed (Tele: Rate-controlled aflutter @ 80) Problem List - Problems (1) S/P CABG (coronary artery bypass graft) Code(s): Z95.1 - PRESENCE OF AORTOCORONARY BYPASS GRAFT (2) Atrial flutter with rapid ventricular response Code(s): I48.92 - UNSPECIFIED ATRIAL FLUTTER (3) Hypothyroid Code(s): E03.9 - HYPOTHYROIDISM, UNSPECIFIED Qualifiers: Hypothyroidism type: unspecified Qualified Code(s): E03.9 - Hypothyroidism , unspecified (4) CKD (chronic kidney disease) Code(s): N18.9 - CHRONIC KIDNEY DISEASE, UNSPECIFIED Qualifiers: Chronic kidney disease stage: stage 2 (mild) Qualified Code(s): N18.2 - Chronic kidney disease, stage 2 (mild) (5) Diastolic dysfunction Code(s): I51.9 - HEART DISEASE, UNSPECIFIED Assessment/Plan Echocardiography Mar 09, 2018 Low normal LV fxn LVEF 50%, normal RV size and fxn , mild LAE, mild MR, TR, normal RVSP Echocardiography performed May 28, 2015 revealed overall preserved left ventricular systolic function, mitral annular calcification, aortic valve leaflet sclerosis, aortic root sclerosis, mild right atrial dilatation, mild mitral and tricuspid valve regurgitation aneurysmal intra-atrial septum with no evidence of intra-cardiac shunting. Pharmacologic (Dipyridamole) myocardial perfusion imaging study performed May 20, 2015 revealed small size infero-basal wall defect compatible with diaphragmatic attenuation with normal left ventricular contraction pattern on LV gated analysis with calculated left ventricular ejection fraction of 73%. Carotid Doppler study performed June 19, 2014 revealed mild to moderate degree of atherosclerotic disease bilaterally with no evidence of hemodynamically significant stenosis. ASSESSMENT: 1. Persistent atrial flutter with RVR [id number] with improved rate-control 2. Coronary artery disease status post coronary artery bypass grafting status post type II myocardial infarction/demand ischemic injury in context of sepsis syndrome with negative pharmacologic (Dipyridamole) myocardial perfusion imaging study angina pectoris. 3. Diastolic left ventricular dysfunction with class 0 [place] [employer] classification left ventricular failure. 4. Hypercholesterolemia currently on no statin therapy, related to patient refusal to therapy administration. 5. History of deep vein thrombosis with pulmonary thromboembolism. 6. History of myasthenia gravis. 7. History of hypothyroidism. 8. 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 9. Acute on chronic kidney disease due to hemodynamic alterations of aflutter improved, ruled out for obstruction. 10. Degenerative joint disease. 11. Chronic insomnia. 12. Dementia PLAN: 1. Continue Lopressor 50 bid for rate-control with uptitration as hemodynamics tolerate, agree with Eliquis 5 bid given elevated risk score 2. Consider DCCV if atrial flutter persists, either with MARIA ISABEL-guidance or after at least 3 weeks of anticoagulation 3. May d/c home with f/u in office [phone] 4. Patient defers health care decisions to Marzena who prefers to continue f/ u with Dr. Calvert as outpatient
[2018-03-10] MEDS: TAMSULOSIN HCL 0.4 MG CAP PO SCH (09:32)
[2018-03-10] MEDS: APIXABAN 5 MG TABLET PO SCH (09:32)
[2018-03-10] MEDS: METOPROLOL TARTRATE 50 MG TABLET (FP) PO SCH (09:32)
[2018-03-10 10:25] VITALS: PULSE 82
--- NOTE | 2018-03-10 11:42 | PN ---
Progress Note (short form) - Note Progress Note: Renal follow up for REMA pt seen and examined at the bedside no acute complaints for d/c home today making urine no sob, cp, abd pain Vital Signs Temperature 98.6 F 03/10/18 10:00 Pulse Rate 82 03/10/18 10:00 Respiratory Rate 18 03/10/18 10:00 Blood Pressure 111/41 L 03/10/18 10:00 O2 Sat by Pulse Oximetry (%) 99 03/10/18 10:25 Intake & Output 03/07/18 03/08/18 03/09/18 03/10/18 23:59 23:59 23:59 23:59 Intake Total 1060 100 Balance 1060 100 Weight 76.204 kg 77.201 kg NAD irregular No M/R CTA no LE edema CBC, BMP 03/10/18 06:30 03/10/18 06:30 Current Medications Acetaminophen (Tylenol -) 650 mg PO Q4H PRN PRN Reason: PAIN OR FEVER Apixaban (Eliquis -) 5 mg PO BID [facility] Last Admin: 03/10/18 09:32 Dose: 5 mg Brimonidine Tartrate (Alphagan P 0.1% -) 1 drop OU HS [facility] Last Admin: 03/09/18 23:00 Dose: 1 drop Latanoprost (Xalatan 0.005% Eye Drops -) 1 drop OU HS [facility] Last Admin: 03/09/18 21:59 Dose: 1 drop Levothyroxine Sodium (Synthroid -) 50 mcg PO DAILY@0700 [facility] Last Admin: 03/10/18 06:36 Dose: 50 mcg Metoprolol Tartrate (Lopressor -) 50 mg PO BID [facility] Last Admin: 03/10/18 09:32 Dose: 50 mg Tamsulosin HCl (Flomax -) 0.4 mg PO DAILY@0830 [facility] Last Admin: 03/10/18 09:32 Dose: 0.4 mg A/P 72 year old gentleman with hx of CAD, BPH, DVT/PE, Myasthaenia gravis, testicular cancer who presented with rapid HR and found to have aflutter with Cr of 1.4. #REMA vs CKD likely due to renal hypoprofusion in setting of Aflutter vs. obstruction in urine flow #New Aflutter #BPH on Flomax #Hypothyroidism Renal function improved and stable Renal US showed no pathology stable for discharge follow up with cardiology as an outpatient continue dimas Blanco DO
--- NOTE | 2018-03-10 12:13 | DS ---
Physical Examination Vital Signs: Vital Signs Temperature 98.6 F 03/10/18 10:00 Pulse Rate 82 03/10/18 10:00 Respiratory Rate 18 03/10/18 10:00 Blood Pressure 111/41 L 03/10/18 10:00 O2 Sat by Pulse Oximetry (%) 99 03/10/18 10:25 Labs: CBC, BMP 03/10/18 06:30 03/10/18 06:30 Discharge Summary Reason For Visit: ATRIAL FLUTTER WITH RAPID VNTRCULAR RESPONSE Current Active Problems Atrial flutter with rapid ventricular response (Acute) BPH (benign prostatic hyperplasia) (Acute) BPH (benign prostatic hyperplasia) (Acute) CKD (chronic kidney disease) (Acute) Diastolic dysfunction (Acute) Glaucoma (Acute) Hypothyroid (Acute) S/P CABG (coronary artery bypass graft) (Acute) - Instructions Referrals: Javan Mendoza MD [Staff Physician] - 1 Week - Home Medications Comprehensive Discharge Medication List: Ambulatory Orders Brimonidine Tartrate [Alphagan P 0.1% -] 1 drop OU HS 09/16/13 Folic Acid/Multivit-Min/Lutein [Multi-Vitamin Gummies] 1 each PO DAILY 09/16/13 Levothyroxine [Synthroid -] 50 mcg PO DAILY 09/16/13 Travoprost 0.004% Ophth Soln [Travatan (Nf)] 1 drop OU AM 09/16/13 Tamsulosin HCl [Flomax -] 0.4 mg PO BID #60 cap.er.24h 09/19/13 Acetaminophen [Tylenol .Regular Strength -] 650 mg PO Q4H PRN tablet 03/10/18 Apixaban [Eliquis -] 5 mg PO BID #60 tablet 03/10/18 Metoprolol Tartrate [Lopressor -] 50 mg PO BID #60 tablet 03/10/18
[2018-03-10 15:32] VITALS: BP 110/61; TEMP 98.2
== END 2018-03-10 14:54 | disposition home or self-care (01) | DRG 309 ==
LOC: JER 12:37 → JERBED 14:25 → J4W 03-09 02:42
PROVIDERS: ADMIT Family Medicine; ATTEND Family Medicine
DX: I48.92 Unspecified atrial flutter (principal); I50.1 Left ventricular failure, unspecified; N17.9 Acute kidney failure, unspecified; I25.10 Atherosclerotic heart disease of native coronary artery without angina pectoris; E03.9 Hypothyroidism, unspecified; N18.2 Chronic kidney disease, stage 2 (mild); Z95.1 Presence of aortocoronary bypass graft; H40.9 Unspecified glaucoma; N40.0 Benign prostatic hyperplasia without lower urinary tract symptoms
CPT/HCPCS: 36415; 71045-TC-FY; 76775-TC; 80053; 82272; 82550; 82553; 82962; 83735; 83880; 84100; 84439; 84443; 84484; 85025; 85610; 93005; 93010; 93306-TC; 97010-GP; 97110-GP; 99284-25; G0283-GP; J7030

== ENCOUNTER 2018-04-02 11:15 | Day surgery (SDC) | payer OTHER ==
[2018-03-30 15:21] VITALS: BMI 23.0
[2018-04-02] MEDS ORDERED: LIDOCAINE VISCOUS 2% ORAL/TOP 20 ML UNIT-DOSE CUP PO ONE (12:55)
[2018-04-02 13:59] VITALS: TEMP 96.7
[2018-04-02] MEDS ORDERED: LIDOCAINE VISCOUS 2% ORAL/TOP 20 ML UNIT-DOSE CUP ONE (14:03)
[2018-04-02 14:42] VITALS: BP 128/75; PULSE 72
--- NOTE | 2018-04-02 15:40 | ECHO ---
Name: LABICK, J LUIS Exam:Transesophageal Echocardiogram Study Date: 04/02/2018 12:48 PM Age: 72 yrs Reason For Study: ATRIAL FLUTTER CARDIOVERSION Height: 72 in Procedure: A 2D transesophageal echocardiogram with Doppler and color flow Doppler was performed. Informed conse nt for Transesophageal Echocardiogram, and use of a contrast agent as needed, was obtained prior to the proc edure. The patient was brought to the endoscopy suite in a fasting state. An intravenous line was placed. A topical anesthetic agent was used for oropharangeal anesthesia. A bite block was inserted. IV concious sedati on was administered using propafol. A multifrequency, multiplane transesopheageal echocardiographic endoscop e was inserted and manipulated in the standard fashion to achieve multiplane views. The usual views were ob tained; basal, mid-esophageal, transgastric and aortic views. The patient's vital signs, including blood pres sure, heart rate, pulse oximetry and cardiac rhythm were monitored throughout the procedure and remained st able. The patient tolerated the procedure well without evidence of orophangeal or esophageal trauma. There were no complications. The patient was in atrial flutter during the exam. Left Ventricle The left ventricle is normal in size. Left ventricular systolic function is low normal. No regional w all motion abnormalities noted. Atria No thrombus is detected in the left atrial appendage. No left atrial mass or thrombus visualized. The interatrial septum is intact with no evidence for an atrial septal defect. Injection of contrast docu mented no interatrial shunt. Mitral Valve There is mild mitral valve prolapse. Prolapse of the anterior mitral leaflet. There is mild mitral regurgitation. Tricuspid Valve The tricuspid valve is normal in structure and function. No tricuspid regurgitation. Aortic Valve The aortic valve is normal in structure and function. The aortic valve is trileaflet. Trace to mild a ortic regurgitation. Pulmonic Valve The pulmonic valve is not well visualized. Great Vessels Large ulcerated plaques are seen in distal aortic arch and small mobile plaque is seen in the same ar ea. Pericardium/Pluera There is no pericardial effusion. Interpretation Summary The left ventricle is normal in size. Left ventricular systolic function is low normal. No regional wall motion abnormalities noted. No thrombus is detected in the left atrial appendage. No left atrial mass or thrombus visualized. The interatrial septum is intact with no evidence for an atrial septal defect. Injection of contrast documented no interatrial shunt. There is mild mitral valve prolapse. Prolapse of the anterior mitral leaflet. There is mild mitral regurgitation. Trace to mild aortic regurgitation. Large ulcerated plaques are seen in distal aortic arch and small mobile plaque is seen in the same ar ea There is no pericardial effusion. Julian Johnson MD 04/02/2018 03:40 PM
--- NOTE | 2018-04-02 17:29 | EKG ---
Test Reason : Blood Pressure : / mmHG Vent. Rate : 069 BPM Atrial Rate : 069 BPM P-R Int : 190 ms QRS Dur : 100 ms QT Int : 438 ms P-R-T Axes : 080 081 079 degrees QTc Int : 469 ms NORMAL SINUS RHYTHM POSSIBLE LEFT ATRIAL ENLARGEMENT INCOMPLETE RIGHT BUNDLE BRANCH BLOCK BORDERLINE ECG WHEN COMPARED WITH ECG OF 08-MAR-2018 13:08, SINUS RHYTHM HAS REPLACED ATRIAL FLUTTER VENT. RATE HAS DECREASED BY 54 BPM Confirmed by JULIAN SUAREZ MD ([id number]) on 04/02/2018 5:29:07 PM Referred By: Julian Suarez Confirmed By:JULIAN SUAREZ MD
== END 2018-04-02 15:02 | disposition home or self-care (01) ==
LOC: JASU-ENDO 11:15 → JOR 11:15 → JASU-ENDO 15:02
PROVIDERS: ATTEND Internal Medicine Cardiovascular Disease
PROC: 5A2204Z Restoration of Cardiac Rhythm, Single (ICD-10-PCS; 2018-04-02)
PROC: B246ZZ4 Ultrasonography of Right and Left Heart, Transesophageal (ICD-10-PCS; principal; 2018-04-02 12:30)
DX: I48.91 Unspecified atrial fibrillation (principal)
CPT/HCPCS: 93005; 93010; 93312; 93325

== ENCOUNTER 2019-04-01 12:47 | Emergency (ER) | payer OTHER ==
[2019-04-01 13:01] VITALS: TEMP 98; BMI 22.5
--- NOTE | 2019-04-01 15:16 | PDOC ---
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 Also with T100.3 3 days ago. at bedside says he is forgetting things and patient unable to provide complete history today. Also with increased dribbling and feeling of retention. says he is fatigured on exertion since new symptoms began. Denies chest pain, chills, abd pain, back pain, n/v, diarrhea, constipation, uri like syndrome, GALVEZ , LH, falls. PMHx: as noted above ROS: as noted SHx: Denies tobacco use; no alcohol use; no rec drugs Allergies: NKDA PCP Giancarlo Johnson ROS: GENERAL/CONSTITUTIONAL: +fever or chills. +generalized weakness. HEAD, EYES, EARS, NOSE AND THROAT: No change in vision. No ear pain or discharge. No sore throat. CARDIOVASCULAR: No chest pain or shortness of breath RESPIRATORY: No cough, wheezing, or hemoptysis. GASTROINTESTINAL: No nausea, vomiting, diarrhea or constipation. GENITOURINARY: +frequency MUSCULOSKELETAL: No joint or muscle swelling or pain. No neck or back pain. SKIN: No rash NEUROLOGIC: No headache, vertigo, loss of consciousness, or change in strength/ sensation. ENDOCRINE: No increased thirst. No abnormal weight change HEMATOLOGIC/LYMPHATIC: No anemia, easy bleeding, or history of blood clots. ALLERGIC/IMMUNOLOGIC: No hives or skin allergy. PE: GENERAL: Awake, a&ox2 HEAD: No signs of trauma, normocephalic, atraumatic EYES: EOMI, sclera anicteric, conjunctiva clear ENT: Auricles normal inspection, hearing grossly normal, nares patent, oropharynx clear without exudates. Moist mucosa NECK: Normal ROM, no lymphadenopathy LUNGS: No increased work of breathing, symmetrical chest rise, clear to auscultation bilaterally, no wheezes, crackles or rhonchi HEART: Regular rate, regular rhythm, normal S1 and S2, no murmur, peripheral pulses 2+ and equal bilaterally. ABDOMEN: Soft, nondistended, nontender, normoactive bowel sounds. No guarding, no rebound. No masses. No CVAT MUSCULOSKELETAL: FROM NEUROLOGICAL: Cranial nerves II through XII grossly intact. Normal speech, normal gait, no focal sensorimotor deficits SKIN: Warm, Dry, normal turgor, no rashes or lesions noted Past History - Past Medical History Allergies/Adverse Reactions: Allergies Allergy/AdvReac Type Severity Reaction Status Date / Time atracurium [Atracurium] Allergy Verified 04/01/19 12:58 mivacurium [Mivacurium] AdvReac Severe Verified 04/01/19 12:58 pancuronium [Pancuronium] AdvReac Severe Verified 04/01/19 12:58 rocuronium AdvReac Severe Verified 04/01/19 12:58 succinylcholine AdvReac Severe Verified 04/01/19 12:58 [Succinylcholine] vecuronium [Vecuronium] AdvReac Severe Verified 04/01/19 12:58 Home Medications: Ambulatory Orders Levothyroxine [Synthroid -] 75 mcg PO DAILY 09/16/13 Travoprost 0.004% Ophth Soln [Travatan (Nf)] 1 drop OU AM 09/16/13 Acetaminophen [Tylenol .Regular Strength -] 650 mg PO Q4H PRN tablet 03/10/18 Apixaban [Eliquis -] 5 mg PO BID #60 tablet 03/10/18 Cholecalciferol (Vitamin D3) [Vitamin D] 2,000 unit PO DAILY 03/30/18 Metoprolol Tartrate [Lopressor -] 25 mg PO BID 03/30/18 Multivit-Min/FA/Lycopen/Lutein [Centrum Silver Men Tablet] 1 each PO DAILY 03/30 Tamsulosin HCl [Flomax -] 0.4 mg PO DAILY 03/30/18 Nitrofurantoin Monohyd/M-Cryst [Macrobid -] 100 mg PO BID #14 capsule 04/01/19 Anemia: No Asthma: No Cancer: Yes (testicular) Cardiac Disorders: Yes (CAD, PAROXYSMAL ATRIAL FLUTTER, H/O ANGINA PECTORIS) CVA: No COPD: No CHF: No Dementia: (ORGANIC BRAIN SYNDROME/DEMENTIA) Diabetes: Yes (peripheral neuropathy) GI Disorders: Yes (gerd) Disorders: (TESTICULAR CANCER) HTN: Yes Hypercholesterolemia: Yes Liver Disease: No Seizures: No Thyroid Disease: Yes (hypothyroid) Other medical history: myasthenia gravis - Surgical History Abdominal Surgery: Yes (APPENDECTOMY) Appendectomy: Yes Cardiac Surgery: Yes (CABG) Cholecystectomy: No Lung Surgery: No Neurologic Surgery: No Orthopedic Surgery: No - Immunization History Td Vaccination: Yes TDAP Vaccination: Yes Immunization Up to Date: Yes - Psycho Social/Smoking Cessation Hx Smoking Status: No Smoking History: Never smoked Years of Tobacco Use: 0 Have you smoked in the past 12 months: No Number of Cigarettes Smoked Daily: 0 Cigars Per Day: 0 Hx Alcohol Use: No Drug/Substance Use Hx: No Substance Use Type: None Hx Substance Use Treatment: No *Physical Exam - Vital Signs Last Vital Signs Temp Pulse Resp BP Pulse Ox 98.0 F 73 16 116/69 100 04/01/19 12:59 04/01/19 12:59 04/01/19 12:59 04/01/19 12:59 04/01/19 12:59 ED Treatment Course - LABORATORY CBC & Chemistry Diagram: 04/01/19 15:42 04/01/19 15:42 Medical Decision Making - Medical Decision Making 04/01/19 17:05 73 y/o M with hx of BPH, CAD(s/p CABG x 4), DVT, PE on eliquis, Myasthenia Gravis, and 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 VSS, AF. PE urnemarkable -cbc, cmp, ua, coags, ekg 04/01/19 17:06 ua+ for uti will treat with macrobid and Dc home with script 04/01/19 17:06 discussed with patient and family to followup with PCP and take meds as prescribed no other questions at this time Discharge - Discharge Information Problems reviewed: Yes Clinical Impression/Diagnosis: UTI (urinary tract infection) Qualifiers: Urinary tract infection type: site unspecified Hematuria presence: with hematuria Qualified Code(s): N39.0 - Urinary tract infection, site not specified ; R31.9 - Hematuria, unspecified Condition: Stable Disposition: HOME - Additional Discharge Information Prescriptions: Nitrofurantoin Monohyd/M-Cryst [Macrobid -] 100 mg PO BID #14 capsule - Follow up/Referral Referrals: Javan Mendoza MD [Primary Care Provider] - - Patient Discharge Instructions Patient Printed Discharge Instructions: DI for Urinary Tract Infection (UTI) Additional Instructions: Additional Instructions: Please return to the emergency department with any new or worsening symptoms or concerns. Please follow up with your primary care physician within 72 hours. Please take Macrobid antibiotic twice a day for 7 days - Post Discharge Activity
[2019-04-01 16:02] LABS: EPI CELLS 0.6 /HPF (0-5/HPF); HYALINE CASTS 3 /lpf (0-8); URINE APPEARANCE TURBID; URINE BILIRUBIN NEGATIVE (NEGATIVE); URINE COLOR YELLOW; URINE GLUCOSE (UA) NEGATIVE (NEGATIVE); URINE KETONE TRACE (NEGATIVE); URINE LEUK ESTERASE 3+ (NEGATIVE); URINE NITRITE POSITIVE (NEGATIVE); URINE PROTEIN 1+ (NEGATIVE); URINE RBC 357 /hpf (0-4); URINE UROBILINOGEN 0.2 mg/dL (0.2-1.0); URINE WBC 652 /hpf (0-5)
[2019-04-01 16:04] LABS: BASO % 0.7 % (0-2.0); EOS % 0.9 % (0-4.5); HEMATOCRIT 40.9 % (35.4-49); HEMOGLOBIN 13.6 GM/dL (11.7-16.9); LYMPH % 21.6 % (8-40); MCHC 33.2 g/dl (32.0-35.9); MEAN CELL VOLUME 93.5 fl (80-96); MEAN PLT VOLUME 7.5 fl (7.5-11.1); MONO % 10.9 % (3.8-10.2); NEUT % 65.9 % (42.8-82.8); PLATELET COUNT 206 K/MM3 (134-434); RBC 4.38 M/mm3 (4.00-5.60); RDW 14.1 % (11.9-15.9); WHITE BLOOD COUNT 5.5 K/mm3 (4.0-10.0)
[2019-04-01 16:17] LABS: INR 1.33 (0.83-1.09); PROTHROMBIN TIME (PATIENT) 15.7 SEC (9.7-13.0)
[2019-04-01 16:20] LABS: ACTIVATED PTT 34.5 SECONDS (25.2-36.5)
[2019-04-01] MEDS ORDERED: NITROFURANTOIN MACROCRYSTAL 50 MG CAPSULE (FP) PO SCH (16:30)
--- NOTE | 2019-04-01 16:43 | PDOC ---
Documentation entered by Skyler Novoa SCRIBE, acting as scribe for Tiara Hernandez MD. Tiara Hernandez MD: This documentation has been prepared by the Bright linder Nirvannie, SCRIBE, under my direction and personally reviewed by me in its entirety. I confirm that the documentation accurately reflects all work, treatment, procedures, and medical decision making performed by me. Attending Attestation - Resident Resident Name: Johnathan Sheehan - ED Attending Attestation I have performed the following: I have examined & evaluated the patient, The case was reviewed & discussed with the resident, I agree w/resident's findings & plan, Exceptions are as noted - HPI HPI: 04/01/19 16:10 The patient is a 73 year old male, with a significant past medical history of CAD(s/p CABG x 4), DVT, PE (on ASA 325), Myasthenia Gravis, testicular CA (s/p radiation therapy 44 years ago, and BPH who presents to the emergency department with, urinary frequency. notes 2 episodes of fevers (Tmax 100.3F ). He denies any abdominal pain or dysuria. Primary Care Physician: Dr. Mendoza - Physicial Exam PE: 04/01/19 16:36 GENERAL: Awake, alert, and fully oriented, in no acute distress HEAD: No signs of trauma LUNGS: Breath sounds equal, clear to auscultation bilaterally. No wheezes, and no crackles HEART: Regular rate and rhythm, normal S1 and S2, no murmurs, rubs or gallops ABDOMEN: Soft, nontender, normoactive bowel sounds. No guarding, no rebound. No masses NEUROLOGICAL: Cranial nerves II through XII grossly intact. Normal speech - Medical Decision Making 04/01/19 16:41 Pt presents to the ED complaining of urgency and frequency without fever, dysuria or flank pain. LAbs show UTI. Will treat with macrobid and discharge home if the rest of the labs are normal.
[2019-04-01 16:45] LABS: ALBUMIN 3.4 g/dl (3.4-5.0); BILIRUBIN,TOTAL 0.5 mg/dL (0.2-1); BLOOD UREA NITROGEN 29.8 mg/dL (7-18); CALCIUM 8.9 mg/dL (8.5-10.1); CREATININE 1.3 mg/dL (0.55-1.3); TOT PROT 6.5 g/dl (6.4-8.2)
[2019-04-01] MEDS ORDERED: NITROFURANTOIN MACROCRYSTAL 50 MG CAPSULE (FP) ONE (17:05)
[2019-04-01 17:21] VITALS: BP 120/75; PULSE 20
== END 2019-04-01 17:28 | disposition home or self-care (01) ==
LOC: JER 12:47
DX: N39.0 Urinary tract infection, site not specified (principal); R31.9 Hematuria, unspecified; I25.709 Atherosclerosis of coronary artery bypass graft(s), unspecified, with unspecified angina pectoris; I11.9 Hypertensive heart disease without heart failure; Z95.1 Presence of aortocoronary bypass graft; I48.92 Unspecified atrial flutter; Z79.01 Long term (current) use of anticoagulants; E11.42 Type 2 diabetes mellitus with diabetic polyneuropathy; E78.00 Pure hypercholesterolemia, unspecified; K21.9 Gastro-esophageal reflux disease without esophagitis; E03.9 Hypothyroidism, unspecified; G70.00 Myasthenia gravis without (acute) exacerbation; Z85.47 Personal history of malignant neoplasm of testis; F09 Unspecified mental disorder due to known physiological condition; F03.90 Unspecified dementia, unspecified severity, without behavioral disturbance, psychotic disturbance, mood disturbance, and anxiety; Z88.8 Allergy status to other drugs, medicaments and biological substances
CPT/HCPCS: 36415; 80053; 81003; 85025; 85610; 85730; 87086; 87186; 99283-25

== ENCOUNTER 2020-01-15 11:07 | Inpatient (IN) | payer OTHER ==
[2020-01-15 11:41] VITALS: BMI 30.5
[2020-01-15 12:49] LABS: BASO % 1.6 % (0-2.0); EOS % 1.2 % (0-4.5); HEMATOCRIT 43.4 % (35.4-49); HEMOGLOBIN 14.4 GM/dL (11.7-16.9); MCH 31.1 pg (25.7-33.7); MCHC 33.1 g/dl (32.0-35.9); MEAN CELL VOLUME 93.9 fl (80-96); MONO % 6.8 % (3.8-10.2); NEUT % 73.4 % (42.8-82.8); PLATELET COUNT 215 K/MM3 (134-434); RBC 4.63 M/mm3 (4.00-5.60); WHITE BLOOD COUNT 6.1 K/mm3 (4.0-10.0)
[2020-01-15 13:06] LABS: CHLORIDE 108 mmol/L (98-107); POTASSIUM 5.1 mmol/L (3.5-5.1); SODIUM 140 mmol/L (136-145)
[2020-01-15 13:08] LABS: ALBUMIN 4.1 g/dl (3.4-5.0); ANION GAP 4 MMOL/L (8-16); BLOOD UREA NITROGEN 31.5 mg/dL (7-18); CO2 28 mmol/L (21-32); MAGNESIUM 2.5 mg/dL (1.8-2.4)
[2020-01-15 13:09] LABS: GLUCOSE,RANDOM 108 mg/dL (74-106)
[2020-01-15 13:11] LABS: CREATININE 1.1 mg/dL (0.55-1.3)
[2020-01-15 13:12] LABS: SGOT/AST 40 U/L (15-37)
[2020-01-15 13:13] LABS: PH,URINE 6.5 (5.0-8.0); TOT PROT 7.4 g/dl (6.4-8.2); URINE APPEARANCE CLEAR; URINE BILIRUBIN NEGATIVE (NEGATIVE); URINE COLOR YELLOW; URINE GLUCOSE (UA) NEGATIVE (NEGATIVE); URINE KETONE NEGATIVE (NEGATIVE); URINE LEUK ESTERASE NEGATIVE (NEGATIVE); URINE NITRITE NEGATIVE (NEGATIVE); URINE PROTEIN NEGATIVE (NEGATIVE); URINE UROBILINOGEN 0.2 mg/dL (0.2-1.0)
[2020-01-15 13:14] LABS: ALK PHOS 51 U/L (45-117)
[2020-01-15 13:16] LABS: SGPT/ALT 26 U/L (13-61)
[2020-01-15] MEDS ORDERED: SODIUM CHLORIDE 250 ML IV STA ×2 (14:05→15:34)
[2020-01-15] MEDS ORDERED: ACETAMINOPHEN 325 MG TABLET (FP) PO PRN (16:23)
[2020-01-15] MEDS ORDERED: D5-1/2NS+20 MEQ KCL - 20 MEQ/1,000 ML INFUS.BAG IV SCH (16:30)
[2020-01-15] MEDS: APIXABAN 5 MG TABLET PO SCH (21:34)
[2020-01-15] MEDS: METOPROLOL TARTRATE 25 MG TABLET (FP) PO SCH (21:34)
[2020-01-16] MEDS: LEVOTHYROXINE NA 75 MCG TABLET (FP) PO SCH (06:00)
[2020-01-16 08:19] LABS: BASO % 0.8 % (0-2.0); EOS % 3.1 % (0-4.5); HEMATOCRIT 36.9 % (35.4-49); LYMPH % 28.3 % (8-40); MCH 30.4 pg (25.7-33.7); MCHC 32.5 g/dl (32.0-35.9); MEAN CELL VOLUME 93.5 fl (80-96); MEAN PLT VOLUME 7.5 fl (7.5-11.1); MONO % 9.6 % (3.8-10.2); NEUT % 58.2 % (42.8-82.8); PLATELET COUNT 186 K/MM3 (134-434); RBC 3.94 M/mm3 (4.00-5.60); RDW 13.5 % (11.9-15.9); WHITE BLOOD COUNT 5.2 K/mm3 (4.0-10.0)
[2020-01-16 09:15] LABS: ALBUMIN 3.5 g/dl (3.4-5.0); BILIRUBIN,TOTAL 0.8 mg/dL (0.2-1); CALCIUM 8.7 mg/dL (8.5-10.1)
[2020-01-16 09:16] LABS: BLOOD UREA NITROGEN 27.2 mg/dL (7-18)
[2020-01-16 09:17] LABS: CREATININE 1.1 mg/dL (0.55-1.3)
[2020-01-16 09:23] LABS: MAGNESIUM 2.2 mg/dL (1.8-2.4)
[2020-01-16] MEDS: METOPROLOL TARTRATE 25 MG TABLET (FP) PO SCH ×4 (09:54→21:48)
[2020-01-16] MEDS: TAMSULOSIN HCL 0.4 MG CAP PO SCH ×3 (09:55→12:00)
[2020-01-16] MEDS: APIXABAN 5 MG TABLET PO SCH ×4 (09:55→21:48)
[2020-01-16] MEDS: CYANOCOBALAMIN (VITAMIN B-12) 1000 MCG/1 ML VIAL IM SCH (12:55)
[2020-01-16] MEDS ORDERED: OLANZapine 10 MG TABLET PO ONE (18:53)
[2020-01-16] MEDS: OLANZapine 10 MG TABLET PO SCH (21:43)
[2020-01-16] MEDS: LATANOPROST 0.005% OPHTH SOLN 2.5ML BOTTLE OU SCH (22:43)
[2020-01-17] MEDS: LEVOTHYROXINE NA 75 MCG TABLET (FP) PO SCH (06:33)
[2020-01-17] MEDS: APIXABAN 5 MG TABLET PO SCH ×2 (12:42→21:31)
[2020-01-17] MEDS: TAMSULOSIN HCL 0.4 MG CAP PO SCH (12:42)
[2020-01-17] MEDS: METOPROLOL TARTRATE 25 MG TABLET (FP) PO SCH ×2 (12:43→21:31)
[2020-01-17] MEDS: CYANOCOBALAMIN (VITAMIN B-12) 1000 MCG/1 ML VIAL IM SCH (16:33)
[2020-01-17] MEDS: OLANZapine 10 MG TABLET PO SCH (21:31)
[2020-01-17] MEDS: LATANOPROST 0.005% OPHTH SOLN 2.5ML BOTTLE OU SCH (21:31)
[2020-01-18] MEDS: LEVOTHYROXINE NA 75 MCG TABLET (FP) PO SCH (06:30)
[2020-01-18] MEDS ORDERED: DONEPEZIL HCL 5 MG TABLET (FP) PO SCH (10:00)
[2020-01-18] MEDS: TAMSULOSIN HCL 0.4 MG CAP PO SCH (10:13)
[2020-01-18] MEDS: APIXABAN 5 MG TABLET PO SCH (10:14)
[2020-01-18] MEDS: METOPROLOL TARTRATE 25 MG TABLET (FP) PO SCH (10:14)
[2020-01-18] MEDS: CYANOCOBALAMIN (VITAMIN B-12) 1000 MCG/1 ML VIAL IM SCH (10:15)
[2020-01-18 18:38] VITALS: BP 108/53; PULSE 72; TEMP 97.5
== END 2020-01-18 18:25 | DRG 57 ==
LOC: JER 11:07 → JERBED 14:09 → J5S 20:09
PROVIDERS: ADMIT Family Medicine; ATTEND Family Medicine
DX: G30.9 Alzheimer's disease, unspecified (principal); F02.81 Dementia in other diseases classified elsewhere, unspecified severity, with behavioral disturbance; E05.90 Thyrotoxicosis, unspecified without thyrotoxic crisis or storm; G70.00 Myasthenia gravis without (acute) exacerbation; I10 Essential (primary) hypertension; E86.0 Dehydration; I25.10 Atherosclerotic heart disease of native coronary artery without angina pectoris; Z95.1 Presence of aortocoronary bypass graft; Z79.01 Long term (current) use of anticoagulants; D51.0 Vitamin B12 deficiency anemia due to intrinsic factor deficiency
CPT/HCPCS: 36415; 70450-TC; 71045-TC-FY; 80053; 80061; 81003; 81401; 82550; 82553; 82607; 83721; 83735; 84436; 84443; 84484; 85025; 86780; 87086; 93005; 93010; 97116-GP; 97162-GP; 99285-25; C9803; U0003